=== PATIENT | male | born 1950 | race Caucasian/White ===

== ENCOUNTER 2020-01-24 08:23 | Emergency (ER) | payer MEDICARE, OTHER ==
[2020-01-24] MEDS ORDERED: Albuterol/Ipratropium 3.0-0.5 MG/3 ML Neb Soln NEB ONE (08:44)
--- NOTE | 2020-01-24 08:48 | EDM.PDOC ---
ED HPI GENERAL MEDICAL PROBLEM - General Chief Complaint: General Stated Complaint: MUCUS IN SINUS/VOMITING/CHEST PRESSURE Time Seen by Provider: 01/24/20 08:33 Source of Information: Reports: Patient History Limitations: Reports: No Limitations - History of Present Illness INITIAL COMMENTS - FREE TEXT/NARRATIVE: 69-year-old male presents to the ED with chronic nasal congestion postnasal drip since October 2019. He states it is become much worse as of late particularly nighttime when he lays down to try and sleep. Becomes more short of breath and seems to develop abdominal bloat discomfort which often ends up in posttussive emesis. This was particular problem last night. He states this happened to him last year as well. He was cleared up after sounds like a Kenalog shot intramuscularly. By history he has chronic sinusitis with postnasal drip. He states that he had recent lung pulmonary function studies which reported that he was on the edge of obstructive lung disease. He states occasionally he can hear himself wheezing. Nuys any chest pain but states is a pressure mostly in the pit of his stomach. Onset: Gradual Onset Date: 10/31/19 Duration: Chronic, Getting Worse Location: Reports: Chest (Feels chest congestion), Abdomen (Nominal bloat discomfort that often will end up causing him to have posttussive vomiting) Quality: Reports: Other (Dyspnea at rest) Severity: Moderate Improves with: Reports: None Worsens with: Reports: None Context: Denies: Activity, Exercise, Lifting, Sick Contact, Trauma Associated Symptoms: Reports: Chest Pain (Normal amount of clear sputum production), Cough, cough w sputum, Malaise (Relieved by vomiting), Shortness of Breath. Denies: No Other Symptoms ( pressure heaviness at times.), Confusion , Diaphoresis, Fever/Chills, Headaches, Loss of Appetite, Nausea/Vomiting, Rash , Seizure, Syncope, Weakness Treatments SPEECH COACH: Reports: Other (see below) (None.) Epigastric Pain Score (Numeric/FACES): 5 - Related Data Allergies Allergy/AdvReac Type Severity Reaction Status Date / Time Penicillins Allergy Anaphylactic Verified 01/24/20 08:36 Shock Home Meds: Home Meds Diclofenac Sodium [Voltaren] 50 mg PO TID #15 tab.ec 06/15/14 [Rx] Dicyclomine [Bentyl] 20 mg PO Q6H PRN #10 tablet 01/24/20 [Rx] Doxycycline [Vibramycin] 100 mg PO BID #20 cap 01/24/20 [Rx] guaiFENesin [Mucinex] 600 mg PO BID #14 tab.er.12h 01/24/20 [Rx] predniSONE [Prednisone] 20 mg PO BID #15 tablet 01/24/20 [Rx] Past Medical History Cardiovascular History: Reports: Hypertension Respiratory History: Reports: COPD Endocrine/Metabolic History: Reports: Hypothyroidism - Past Surgical History Musculoskeletal Surgical History: Reports: Other (See Below) Other Musculoskeletal Surgeries/Procedures:: rose high Social & Family History - Living Situation & Occupation Living situation: Reports: Occupation: Retired ED ROS GENERAL - Review of Systems Review Of Systems: See Below Constitutional: Reports: Malaise, Weakness, Fatigue, Decreased Appetite, Weight Loss, Other (Fatigue not sleeping). Denies: Fever, Chills HEENT: Reports: Glasses Respiratory: Reports: Shortness of Breath, Wheezing, Cough, Sputum (Occasional white sputum production). Denies: Pleuritic Chest Pain (Occasional) Cardiovascular: Reports: Dyspnea on Exertion. Denies: No Symptoms, Chest Pain, Blood Pressure Problem, Claudication, Edema, Lightheadedness, Orthopnea, Palpitations Endocrine: Reports: Fatigue GI/Abdominal: Reports: Abdominal Pain (Abdominal bloat pressure discomfort that often ends up in posttussive vomiting. This is what occurred this morning.) : Reports: Frequency, Other (Nocturia x2 or 3) Musculoskeletal: Reports: Back Pain Skin: Reports: No Symptoms Neurological: Reports: No Symptoms Psychiatric: Reports: No Symptoms Hematologic/Lymphatic: Reports: No Symptoms Immunologic: Reports: No Symptoms ED EXAM, GENERAL - Physical Exam Exam: See Below Exam Limited By: No Limitations General Appearance: Alert, WD/WN, No Apparent Distress Eye Exam: Bilateral Eye: Normal Inspection, PERRL Ears: Normal TMs Nose: Nasal Swelling (Is swelling of both the middle and superior nasal turbinates bilaterally.) Throat/Mouth: Normal Inspection, Normal Lips, Normal Teeth, Normal Oropharynx, Other (Is a bit of a postnasal drip midline of the posterior pharynx) Head: Atraumatic, Normocephalic Neck: Normal Inspection, Supple, Non-Tender, Full Range of Motion. No: Lymphadenopathy (L), Lymphadenopathy (R) Respiratory/Chest: No Respiratory Distress, No Accessory Muscle Use, Chest Non- Tender, Decreased Breath Sounds, Wheezing (Occasional expiratory wheeze on the right side) Cardiovascular: Normal Peripheral Pulses, Regular Rate, Rhythm, No Edema, No Gallop, No Murmur (Decreased breath sounds to the lower 20% of lung eason bilaterally), No Rub Peripheral Pulses: 2+: Posterior Tibial (L), Posterior Tibial (R), Dorsalis Pedis (L), Dorsalis Pedis (R) GI/Abdominal: Normal Bowel Sounds, Soft, Non-Tender, No Organomegaly, No Abnormal Bruit, No Mass, Pelvis Stable, Distended (Minimally distended in the epigastrium with slight tympany to percussion compatible with aerophagia.), Other (Male) Exam: No Hernia (Obesity) Extremities: Normal Inspection, Normal Range of Motion, Non-Tender. No: Pedal Edema Neurological: Alert, Oriented, CN II-XII Intact, Normal Cognition, Normal Gait Psychiatric: Normal Affect, Normal Mood Skin Exam: Warm, Dry, Intact, Normal Color, No Rash Course - Vital Signs Last Recorded V/S: Last Vital Signs Temp 37.1 C 01/24/20 08:32 Pulse 81 01/24/20 08:32 Resp 16 01/24/20 08:32 BP 124/96 H 01/24/20 08:32 Pulse Ox 92 L 01/24/20 08:53 - Orders/Labs/Meds Orders: Active Orders 24 hr Category Date Time Status RT Aerosol Therapy [RC] ASDIRECTED Care 01/24/20 08:45 Active Abdomen 1V Flat [CR] Stat Exams 01/24/20 09:13 Taken Meds: Medications Discontinued Medications Generic Name Dose Route Start Last Admin Trade Name Freq PRN Reason Stop Dose Admin Albuterol/Ipratropium 3 ml 01/24/20 08:44 01/24/20 08:52 Duoneb 3.0-0.5 Mg/3 Ml NEB 01/24/20 08:45 3 ml ONETIME ONE Administration - Radiology Interpretation Free Text/Narrative:: 69-year-old male presents to the ED with a prolonged history of nasal congestion postnasal drip that seems to precipitate shortness of breath and paroxysmal cough often ending and emesis. He states that often he wakes up in the morning with marked abdominal distention combined with aerophagia. Needs to give some consideration to possible sleep apnea syndrome. On examination he does have a mild postnasal drip. No cervical adenopathy. Lungs for the most part are clear to auscultation percussion with the occasional expiratory wheeze. He has mildly decreased air entry to both lung bases. No JVD and no crackles. Benign abdominal examination no dependent edema. His major problem is postnasal drip likely from chronic sinusitis causing paroxysmal cough and dyspnea. He reports that he has had recent pulmonary function studies which suggest that he was borderline obstructive sleep apnea. Patient whether or not he may have sleep apnea syndrome. At this point time the only test I am going to order is a one-view portable chest x-ray. We will give him a DuoNeb treatment to see if this alleviates his subjective sensation of dyspnea. - Re-Assessments/Exams Free Text/Narrative Re-Assessment/Exam: 01/24/20 09:04 chest x-ray done portably reveals slight hyperinflation of the lung eason. Borderline cardiomegaly. No definitive evidence of pneumonia. 01/24/20 09:13 on reexamination patient continues to have upper abdominal discomfort. On auscultation he continues to have intermittent high-pitched bowel sounds and mild tympany to percussion. I think this is all due to aerophagia from swallowing air during the night. I will have an x-ray of his abdomen carried out. 01/24/20 09:39 KUB reveals some dilated loops of small bowel in the right mid abdomen characteristic of an ileus-like pattern however the patient has very active bowel sounds. That this is more secondary to aerophagia. There is certainly no signs of bowel obstruction. Departure - Departure Time of Disposition: 09:05 Disposition: Home, Self-Care 01 Condition: Fair Clinical Impression: Bronchitis Chronic sinusitis, unspecified Qualifiers: Sinusitis location: unspecified location Qualified Code(s): J32.9 - Chronic sinusitis, unspecified - Discharge Information *PRESCRIPTION DRUG MONITORING PROGRAM REVIEWED*: Not Applicable *COPY OF PRESCRIPTION DRUG MONITORING REPORT IN PATIENT NAJMA: Not Applicable Prescriptions: Dicyclomine [Bentyl] 20 mg PO Q6H PRN #10 tablet PRN Reason: Abdominal cramps/diarrhea Doxycycline [Vibramycin] 100 mg PO BID #20 cap guaiFENesin [Mucinex] 600 mg PO BID #14 tab.er.12h predniSONE [Prednisone] 20 mg PO BID #15 tablet Instructions: Sinusitis, Adult, [id number] Referrals: Regino Lombardi MD [Primary Care Provider] - Forms: ED Department Discharge Additional Instructions: Evaluation in the emergency room this morning in regards to recurrent problems with nasal congestion and postnasal drip causing paroxysmal cough often to the point of emesis. Awakening every morning with diffuse abdominal distention which is due to the air that is swallowed during the night indicating that you are experiencing some difficulty breathing during the night and her swallowing air. Sometimes the areas distending the abdomen bad enough to cause vomiting first thing in the morning. I would therefore suggest that you have a sleep study done to prove that you do not have sleep apnea syndrome. The the chest x- ray and the abdominal x-ray are both within normal limits. Leave that you have chronic sinus infection which is causing a drip of mucus down the back of your throat into your upper lungs causing her cough and irritation of the stomach first thing in the morning. Therefore I am going to suggest a trial of Mucinex 600 mg twice daily 1 with breakfast and 1 with bedtime. Also dose of prednisone 20 mg twice daily 1 first thing with breakfast and in the next 1 with supper daily for 5 days and then once in the morning only for another 5 days. Antibiotic is to be doxycycline 100 mg twice daily for 10 days to clear up sinus infection. The last medicine is called Bentyl 20 mg tablet to be taken once daily at bedtime to help alleviate some of the accumulation of air in the stomach overnight. Suggest arranging a follow-up appoint with Dr. Sharma to arrange a sleep study as this has to go through insurance and will often take 3 or 4 weeks to get arranged. Following up with him in 7 to 10 days time and see if the medication above has helped. Sepsis Event Note - Evaluation Sepsis Screening Result: No Definite Risk - Focused Exam Vital Signs: Vital Signs Temp Pulse Resp BP Pulse Ox Pulse Ox 01/24/20 08:53 92 L 01/24/20 08:32 37.1 C 81 16 124/96 H 96 Date Exam was Performed: 01/24/20 Time Exam was Performed: 09:39 - My Orders Last 24 Hours: My Active Orders 01/24/20 08:45 RT Aerosol Therapy [RC] ASDIRECTED 01/24/20 09:13 Abdomen 1V Flat [CR] Stat - Assessment/Plan Last 24 Hours: My Active Orders 01/24/20 08:45 RT Aerosol Therapy [RC] ASDIRECTED 01/24/20 09:13 Abdomen 1V Flat [CR] Stat
--- NOTE | 2020-01-24 09:11 | CR ---
Chest: Portable view of the chest was obtained. Comparison: Previous chest x-ray of 06/15/14. Slight scarring is noted within the left lung base. Lungs otherwise are clear with no acute parenchymal change. Heart size is normal. Tortuous thoracic aorta is seen. Stable widening of the upper mediastinum is seen. Bony structures are grossly intact. Impression: 1. Findings as noted above. 2. Nothing acute is appreciated on portable chest x-ray. Diagnostic code #2 This report was dictated in MDT
[2020-01-24] MEDS ORDERED: Sodium Chloride 0.9% 10 ML Syringe FLUSH PRN ×2 (10:12→12:30)
[2020-01-24] MEDS ORDERED: Metoclopramide 10 MG/2 ML SDV IVPUSH ONE (10:14)
[2020-01-24] MEDS ORDERED: Dicyclomine 10 MG Cap PO ONE (10:16)
--- NOTE | 2020-01-24 10:28 | CR ---
Abdomen: Supine view of the abdomen was obtained. Comparison: No prior abdominal x-ray. Mild disc space narrowing is scattered within the spine with endplate osteophytes. Joint spaces within both hips are maintained. Calcifications are seen within the pelvis most likely representing phleboliths. Scattered bowel gas is seen within colon and small bowel. This is believed to be within normal limits at this time. No discrete soft tissue abnormality is appreciated. Impression: 1. Findings as noted above. 2. Nothing acute is suspected. Diagnostic code #2 This report was dictated in MDT
[2020-01-24] MEDS ORDERED: Iopamidol 612 MG/ML 100 ML Bottle IVPUSH ONE (12:30)
[2020-01-24] MEDS ORDERED: Dextrose 5%-0.9% NaCl 1,000 ML IV SCH (12:30)
--- NOTE | 2020-01-24 13:55 | CT ---
CT chest Technique: Multiple axial sections were obtained from above the lung apices inferiorly through the lung bases. Intravenous contrast was utilized. Comparison: Prior chest x-ray performed earlier on the same day (8:33 AM). Findings: Small mediastinal lymph nodes are seen which are felt to be within normal limits. No axillary adenopathy is seen. Aorta shows no aneurysm. Coronary artery calcification is noted. Cyst is partially visualized within the right kidney. Increased density is noted within both lung bases. Findings most likely represent a combination of scarring and atelectasis. Difficult to exclude mild areas of pneumonia if patient has infectious symptoms. Lungs otherwise are clear. Bone window settings were reviewed which show diffuse disc space narrowing throughout the spine with scattered endplate osteophytes. Impression: 1. Increased density within both lung bases most likely representing combination of scarring and atelectasis. As mentioned above, if patient has infectious symptoms difficult to exclude mild areas of pneumonia. 2. Other findings as noted above which are nonacute. Diagnostic code #3 This report was dictated in MDT
[2020-01-24] MEDS ORDERED: Acetaminophen 325 MG Tab PO ONE (14:06)
== END 2020-01-24 14:30 | disposition home or self-care (01) ==
LOC: JD.ED 08:23
DX: J40 Bronchitis, not specified as acute or chronic (principal); J32.9 Chronic sinusitis, unspecified; Z88.0 Allergy status to penicillin; I10 Essential (primary) hypertension; J44.9 Chronic obstructive pulmonary disease, unspecified
CPT/HCPCS: 36415; 36600; 71045; 71260; 74018; 80053; 82803; 83735; 83880; 84484; 85025; 85379; 86140; 94640; 96361; 96374; 99285; A9270; J2765; J7042; Q9967; 99284; J7620-GY

== ENCOUNTER 2021-12-06 01:10 | Emergency (ER) | payer MEDICARE, OTHER ==
[2021-12-06] MEDS ORDERED: Sodium Chloride 0.9% 1,000 ML IV SCH (02:00)
[2021-12-06] MEDS ORDERED: Sodium Chloride 0.9% 10 ML SDV FLUSH ONE (02:11)
[2021-12-06] MEDS ORDERED: Iopamidol 612 MG/ML 100 ML Bottle IVPUSH ONE (02:11)
== END 2021-12-06 07:31 ==
LOC: JD.ED 01:10
DX: R14.0 Abdominal distension (gaseous) (principal); J98.8 Other specified respiratory disorders; I44.0 Atrioventricular block, first degree; E78.00 Pure hypercholesterolemia, unspecified; I10 Essential (primary) hypertension; J44.9 Chronic obstructive pulmonary disease, unspecified; E03.9 Hypothyroidism, unspecified; E66.9 Obesity, unspecified; Z68.31 Body mass index [BMI] 31.0-31.9, adult; Z87.891 Personal history of nicotine dependence; Z88.0 Allergy status to penicillin; Z79.899 Other long term (current) drug therapy; Z20.822 Contact with and (suspected) exposure to COVID-19
CPT/HCPCS: 36415; 74177; 80053; 85007; 85027; 93005; 99285; J7030; Q9967; U0002; 93010